=== PATIENT | male | born 1960 | race Caucasian/White ===

== ENCOUNTER 2022-11-23 13:49 | Emergency (ER) | payer OTHER ==
[~2022-11-23] VITALS: Ht 185.4 cm; Wt 70.3 kg
[2022-11-23 13:57] VITALS: BP 117/84
== END 2022-11-23 15:30 | disposition home or self-care (01) ==
LOC: ER 13:49
DX: S01.81XA Laceration without foreign body of other part of head, initial encounter (principal); W01.10XA Fall on same level from slipping, tripping and stumbling with subsequent striking against unspecified object, initial encounter; Z23 Encounter for immunization
CPT/HCPCS: 12011; 90471; 90715; 99283-25

== ENCOUNTER 2022-11-30 08:26 | Emergency (ER) | payer OTHER | END 2022-11-30 09:20 | disposition home or self-care (01) | LOC: ER 08:26 | DX: Z48.02 Encounter for removal of sutures (principal) | CPT/HCPCS: 99281 ==